=== PATIENT | female | born 1970 | race Caucasian/White ===

== ENCOUNTER → 2017-07-10 | Outpatient (CLI) | payer BC | LOC: M WHC 12:58 | DX: Z12.31 Encounter for screening mammogram for malignant neoplasm of breast (principal); Z78.0 Asymptomatic menopausal state; Z92.0 Personal history of contraception | CPT/HCPCS: 77067 ==

== ENCOUNTER 2018-01-24 05:02 | Emergency (ER) | payer BC ==
[2018-01-24 05:33] LABS: BASO % 0.5 % (0.0-1.0); EOS # 0.1 10^3/uL (0.0-0.50); EOS % 2.1 % (0.0-3.0); HEMATOCRIT 38.8 % (36.0-47.0); HEMOGLOBIN 13.2 g/dl (12.0-15.5); IMMATURE GRANULOCYTE % 0.2 % (0-3.0); LYMPH # 2.1 10^3/uL (1.5-4.5); LYMPH % 36.5 % (24.0-44.0); MEAN CORPUSCULAR HEMOGLOBIN 31.7 pg (27.0-33.0); MONO # 0.7 10^3/uL (0.0-0.8); MONO % 12.6 % (0.0-5.0); NEUTROPHILS # 2.8 10^3/uL (1.8-7.7); NEUTROPHILS % 48.1 % (36.0-66.0); PLATELET COUNT, AUTOMATED 260 10^3/uL (150-450); RED BLOOD COUNT 4.17 10^6/uL (4.00-5.40); WHITE BLOOD COUNT 5.7 10^3/uL (4.0-10.0)
[2018-01-24 05:44] LABS: INR 0.92; PARTIAL THROMBOPLASTIN TIME 29.3 SECONDS (25.4-37.6); PROTHROMBIN TIME 12.4 SECONDS (12.1-14.4)
[2018-01-24 05:59] LABS: ALBUMIN 3.8 GM/DL (3.2-5.2); ALBUMIN/GLOBULIN RATIO 1.12 (1.00-1.93); ALKALINE PHOSPHATASE 78 U/L (45-117); ALT/SGPT 21 U/L (12-78); ANION GAP 9 MEQ/L (8-16); AST/SGOT 22 U/L (7-37); BILIRUBIN,DIRECT 0.1 MG/DL (0.0-0.2); BILIRUBIN,TOTAL 0.4 MG/DL (0.2-1.0); BLOOD UREA NITROGEN 18 MG/DL (7-18); CALCIUM LEVEL 8.9 MG/DL (8.5-10.1); CARBON DIOXIDE LEVEL 29 MEQ/L (21-32); CHLORIDE LEVEL 106 MEQ/L (98-107); CPK CREATINE PHOSPHOKINASE 201 U/L (26-192); CREATININE FOR GFR 0.79 MG/DL (0.55-1.30); GLOMERULAR FILTRATION RATE > 60.0 (>58); GLUCOSE, FASTING 91 MG/DL (70-100); LIPASE 339 U/L (73-393); MB/CK RELATIVE INDEX 1.34 (< OR =4); POTASSIUM SERUM 3.6 MEQ/L (3.5-5.1); SODIUM LEVEL 144 MEQ/L (136-145); TOTAL PROTEIN 7.2 GM/DL (6.4-8.2); TROPONIN I < 0.02 NG/ML (< 0.10)
[2018-01-24] MEDS: GI COCKTAIL 50ML BTL(HYOSCYAMINE/MAALOX/LIDOCAINE VISCOUS)(1:3:1) PO (06:34)
[2018-01-24] MEDS ORDERED: ISOVUE-370 76% 100ML VIAL (Q9967) As Ordered (06:39)
[2018-01-24 11:40] LABS: CPK CREATINE PHOSPHOKINASE 168 U/L (26-192); MB/CK RELATIVE INDEX 1.07 (< OR =4); TROPONIN I < 0.02 NG/ML (< 0.10)
== END 2018-01-24 12:41 | disposition home or self-care (01) ==
LOC: M ED 05:02
DX: R07.9 Chest pain, unspecified (principal); Z79.899 Other long term (current) drug therapy; Z88.8 Allergy status to other drugs, medicaments and biological substances
CPT/HCPCS: Q9967

== ENCOUNTER → 2019-01-23 | Outpatient (CLI) | payer BC ==
[~2019-01-23] MED LIST: MULTCAP PO; PROT1TAB2 PO; SUCR1SS PO; VITA500079 PO; ZYRTTAB8 PO
--- NOTE | 2019-01-23 11:14 | REPMRS ---
Patient History The patient states she had a clinical breast exam in 12/2018. Patient is postmenopausal, has history of skin cancer at age 42, and had first child at age 36. Family history of breast cancer at age 50 or over in maternal grandmother. Took hormonal contraceptives for 9 years. 3D TOMOSYNTHESIS WAS PERFORMED. [facility] lifetime risk for breast cancer is 17.9%. Digital Woman Screen Mammo: January 23, 2019 - Exam #: [id number] Bilateral CC and MLO view(s) were taken. Technologist: Brenda Coker, Technologist Prior study comparison: July 10, 2017, digital woman screen mammo performed at [facility]. April 20, 2016, digital woman screen mammo performed at [facility]. FINDINGS: The breast tissue is extremely dense which could obscure a lesion on mammography. There has been no change in the appearance of the mammogram from the prior studies. There is a moderate amount of residual fibroglandular tissue which is fairly symmetric. There is no interval development of dominant mass, areas of architectural distortion, or clustered microcalcification typical of malignancy. Assessment: BI-RADS/ACR category 1 mammogram. Negative Mammogram. Recommendation Routine screening mammogram in 1 year (for women over age 40). This mammogram was interpreted with the aid of an FDA-approved computer-aided dectection system. Electronically Signed By: Anmol Hassan MD 01/23/19 [id number]
== END ==
LOC: M WHC 08:58
PROVIDERS: ATTEND Obstetrics & Gynecology
DX: Z12.31 Encounter for screening mammogram for malignant neoplasm of breast (principal); Z78.0 Asymptomatic menopausal state

== ENCOUNTER → 2020-04-21 | Outpatient (CLI) | payer BC ==
--- NOTE | 2020-04-21 12:17 | REPMRS ---
Patient History The patient states she had a clinical breast exam in 03/2020 Family history of breast cancer at age 50 or over in maternal grandmother. Took hormonal contraceptives for 9 years. Digital Woman Screen Mammo: April 21, 2020 - Exam #: [id number] Bilateral CC and MLO view(s) were taken. Technologist: Felicia Arceo, Technologist Prior study comparison: January 23, 2019, bilateral digital woman screen mammo performed at [facility]. July 10, 2017, digital woman screen mammo performed at [facility]. April 20, 2016, digital woman screen mammo performed at [facility]. FINDINGS: The breast tissue is extremely dense which could obscure a lesion on mammography. The [employer] volumetric breast density category is: D. There is an extremely dense symmetrical pattern of residual fibroglandular tissue. There has been no change in the appearance of the mammogram from the previous studies. There is no interval development of dominant mass, archetectural distortion, or grouped microcalcifications suggestive of malignancy. 3-D tomosynthesis shows no additional findings. Assessment: BI-RADS/ACR category 1 mammogram. Negative Mammogram. Recommendation Routine screening mammogram of both breasts in 1 year (for women over age 40). This patient's [facility] Lifetime Breast Cancer RIsk is estimated at 17.6 %. This mammogram was interpreted with the aid of an FDA-approved computer-aided dectection system. Electronically Signed By: Joni Sam MD 04/21/20 [id number]
== END ==
LOC: M WHC 10:59
PROVIDERS: ATTEND Obstetrics & Gynecology
DX: Z12.31 Encounter for screening mammogram for malignant neoplasm of breast (principal)

== ENCOUNTER → 2022-08-01 | Outpatient (CLI) | payer BC | LOC: M WUC 13:36 | PROVIDERS: ATTEND Physician Assistant | DX: S63.511A Sprain of carpal joint of right wrist, initial encounter (principal); S63.681A Other sprain of right thumb, initial encounter ==

== ENCOUNTER → 2023-01-02 | Outpatient (CLI) | payer BC | LOC: M WHC 11:30 | PROVIDERS: ATTEND Obstetrics & Gynecology | DX: Z12.31 Encounter for screening mammogram for malignant neoplasm of breast (principal) ==

== ENCOUNTER 2023-09-24 06:55 | Day surgery (SDC) | payer BC ==
[~2023-09-24] VITALS: Ht 157.5 cm; Wt 50.5 kg
[~2023-09-24 06:55] MED LIST changes: +BUPR-71 PO; +MULTTAB61 PO; +VITA100093 PO
[2023-09-24] MEDS ORDERED: propofoL 200 MG/20 ML VIAL As Ordered ONE (07:07)
[2023-09-24] MEDS: NS 1,000 ML IV ONE (07:19)
[2023-09-24] MEDS ORDERED: MIDAZOLAM INJ 2MG/2ML VIAL As Ordered ONE (07:32)
[2023-09-24] MEDS ORDERED: LIDOCAINE 2% 100MG/5ML SDV (FOR ANES.) As Ordered ONE (07:57)
[2023-09-24] MEDS ORDERED: ONDANSETRON 4MG 2ML VIAL As Ordered ONE (08:15)
[2023-09-24 08:19] VITALS: TEMP 97.1
[2023-09-24 08:45] VITALS: BP 109/56; O2SAT 100
== END 2023-09-24 09:04 | disposition home or self-care (01) ==
LOC: M OPP 06:55
PROVIDERS: ATTEND Internal Medicine Gastroenterology
DX: Z12.11 Encounter for screening for malignant neoplasm of colon (principal); Z88.5 Allergy status to narcotic agent; Z88.6 Allergy status to analgesic agent
CPT/HCPCS: 45378; J2250; J2405